=== PATIENT | male | born 1975 | race African-American/Black ===

== ENCOUNTER 2017-03-29 13:55 | Inpatient (IN) | payer MEDICAID, OTHER ==
[~2017-03-29] VITALS: Ht 185.4 cm; Wt 74.6 kg
[~2017-03-29 13:55] MED LIST: BUSP15 PO; QUET400T PO
[2017-03-29 17:20] VITALS: BP 125/77
[2017-03-29] MEDS ORDERED: PNEUMOCOCCAL VACCINE POLYVALENT 0.5 ML VIAL [PPSV23] IM ONE (18:00)
[2017-03-29] MEDS: QUEtiapine FUMARATE 200 MG TABLET PO SCH (20:23)
[2017-03-30 06:49] VITALS: BP 112/75
[2017-03-30] MEDS ORDERED: IBUPROFEN 600 MG TABLET PO PRN (07:45)
[2017-03-30] MEDS ORDERED: ALBUTEROL SULFATE HFA 90 MCG/PUFF 8 GM INHALER IH PRN (07:45)
[2017-03-30] MEDS ORDERED: MAG HYDROX/AL HYDROX/SIMETH ES 30 ML SUSPENSION UDCUP PO PRN (07:45)
[2017-03-30] MEDS ORDERED: BACITRACIN 28.4 GM OINTMENT TP PRN (07:45)
[2017-03-30] MEDS ORDERED: LOPERAMIDE HCL 2 MG CAPSULE PO PRN (07:45)
[2017-03-30] MEDS ORDERED: PETROLATUM,WHITE 71 GM JELLY TP PRN (07:45)
[2017-03-30] MEDS ORDERED: ACETAMINOPHEN 325 MG TABLET PO PRN (07:45)
[2017-03-30] MEDS ORDERED: MAGNESIUM HYDROXIDE SUSPENSION 30 ML UDCUP PO PRN (07:45)
[2017-03-30] MEDS ORDERED: BENZOCAINE/MENTHOL LOZENGE MM PRN (07:45)
[2017-03-30] MEDS ORDERED: ONDANSETRON HCL 4 MG TABLET PO PRN (07:45)
[2017-03-30] MEDS ORDERED: CloNIDine HCL 0.1 MG TABLET PO PRN (07:45)
[2017-03-30 07:46] LABS: BASOPHILS # (AUTO) 0.01 K/uL (0.00-0.20); BASOPHILS % (AUTO) 0.3 % (0.0-2.0); EOSINOPHILS # (AUTO) 0.14 K/uL (0.00-0.70); EOSINOPHILS % (AUTO) 2.65 % (1.0-6.0); HEMATOCRIT 43.8 % (41-53); HEMOGLOBIN 14.2 g/dL (13.5-17.5); MEAN CORPUSCULAR HEMOGLOBIN 27.4 pg (26.0-34.0); MEAN CORPUSCULAR HGB CONC 32.5 G/dL (31.0-37.0); MEAN CORPUSCULAR VOLUME 84 fL (80-100); MONOCYTES # (AUTO) 0.8 K/uL (0.1-1.0); NEUTROPHILS # (AUTO) 3.2 K/uL (1.8-7.7); NEUTROPHILS % (AUTO) 62.1 % (40.0-70.0); PLATELET COUNT (AUTO) 147 K/uL (150-450); RED BLOOD CELL COUNT(AUTO) 5.19 MIL/uL (4.50-5.90); RED CELL DISTRIBUTION WIDTH 14.3 % (11.5-14.5); WHITE BLOOD COUNT (AUTO) 5.2 K/uL (4.5-11.0)
[2017-03-30 08:04] LABS: ANION GAP 9 mmol/L (8-16); CARBON DIOXIDE 26 mmol/L (22-29); CHLORIDE 107 mmol/L (98-107); CREATININE 0.89 mg/dL (0.60-1.30); SODIUM SERUM 142 mmol/L (136-145); UREA NITROGEN, BLOOD 21 mg/dL (7-18)
[2017-03-30 08:05] LABS: ALANINE AMINOTRANSFERASE 29 U/L (12-78); ALBUMIN 3.3 g/dL (3.4-5.0); ASPARTATE AMINOTRANSFERASE 17 U/L (15-37); BILIRUBIN,TOTAL 0.8 mg/dL (0.1-1.0); CALCIUM, TOTAL 8.4 mg/dL (8.8-10.5); CHOL/HDL RATIO 2.6 (4.2-7.3); GLOMERULAR FILTR. RATE CALC > 60 mL/min (>60); TOTAL PROTEIN, SERUM 6.8 g/dL (6.4-8.2)
[2017-03-30 08:34] VITALS: BP 95/60
[2017-03-30] MEDS: LevETIRAcetam 500 MG TABLET PO SCH ×2 (08:44→15:39)
[2017-03-30 16:02] VITALS: BP 112/68
[2017-03-30] MEDS: QUEtiapine FUMARATE 200 MG TABLET PO SCH (20:25)
[2017-03-31 06:38] VITALS: BP 107/69
[2017-03-31 08:03] VITALS: BP 127/62
[2017-03-31] MEDS: LORazepam 2 MG TABLET PO PRN ×2 (08:34→20:46)
[2017-03-31] MEDS: LevETIRAcetam 500 MG TABLET PO SCH ×2 (08:34→16:14)
[2017-03-31 16:00] VITALS: BP 105/64
[2017-03-31] MEDS: QUEtiapine FUMARATE 200 MG TABLET PO SCH (20:46)
[2017-04-01 06:21] VITALS: BP 113/71
[2017-04-01 08:00] VITALS: BP 108/75
[2017-04-01] MEDS: LevETIRAcetam 500 MG TABLET PO SCH ×2 (09:25→17:22)
[2017-04-01] MEDS: LORazepam 2 MG TABLET PO PRN (09:25)
[2017-04-01 16:00] VITALS: BP 108/64
[2017-04-01] MEDS: QUEtiapine FUMARATE 200 MG TABLET PO SCH (20:54)
[2017-04-02 06:15] VITALS: BP 110/70
[2017-04-02 08:27] VITALS: BP 102/65
[2017-04-02] MEDS: LevETIRAcetam 500 MG TABLET PO SCH ×2 (09:07→16:55)
[2017-04-02] MEDS: LORazepam 2 MG TABLET PO PRN ×2 (09:07→16:55)
[2017-04-02] MEDS: BuPROPion HCL XL 150 MG ER TABLET PO SCH (14:27)
[2017-04-02 16:02] VITALS: BP 117/69
[2017-04-02] MEDS: QUEtiapine FUMARATE 200 MG TABLET PO SCH (20:22)
[2017-04-03 06:14] VITALS: BP 100/65
[2017-04-03] MEDS: LevETIRAcetam 500 MG TABLET PO SCH ×2 (08:59→17:10)
[2017-04-03] MEDS: QUEtiapine FUMARATE 200 MG TABLET PO SCH ×2 (08:59→20:35)
[2017-04-03] MEDS: BuPROPion HCL XL 150 MG ER TABLET PO SCH (08:59)
[2017-04-03 13:44] VITALS: BP 101/67
[2017-04-03 16:22] VITALS: BP 123/80
[2017-04-03] MEDS: LORazepam 2 MG TABLET PO PRN (17:58)
[2017-04-04 06:41] VITALS: BP 105/70
[2017-04-04] MEDS: QUEtiapine FUMARATE 200 MG TABLET PO SCH ×2 (08:05→20:22)
[2017-04-04] MEDS: BuPROPion HCL XL 150 MG ER TABLET PO SCH (08:05)
[2017-04-04] MEDS: HALOPERIDOL 5 MG TABLET PO PRN (08:05)
[2017-04-04] MEDS: LORazepam 2 MG TABLET PO PRN (08:05)
[2017-04-04] MEDS: LevETIRAcetam 500 MG TABLET PO SCH ×2 (08:05→15:49)
[2017-04-04 08:10] VITALS: BP 111/73
[2017-04-04 16:09] VITALS: BP 104/62
[2017-04-04] MEDS: ZOLPIDEM TARTRATE 10 MG TABLET PO PRN (20:22)
[2017-04-05 08:21] VITALS: BP 113/79
[2017-04-05] MEDS: LevETIRAcetam 500 MG TABLET PO SCH ×2 (09:02→16:33)
[2017-04-05] MEDS: BuPROPion HCL XL 150 MG ER TABLET PO SCH (09:02)
[2017-04-05] MEDS: QUEtiapine FUMARATE 200 MG TABLET PO SCH ×2 (09:02→20:09)
[2017-04-05 09:19] LABS: CHOL/HDL RATIO 2.9 (4.2-7.3); THYROID STIMULATING HORMONE 1.05 uIU/mL (0.36-3.74)
[2017-04-05] MEDS: LORazepam 2 MG TABLET PO PRN ×2 (11:18→20:09)
[2017-04-05] MEDS: HALOPERIDOL 5 MG TABLET PO PRN (11:18)
[2017-04-05 16:09] VITALS: BP 126/69
[2017-04-06 06:17] VITALS: BP 122/72
[2017-04-06] MEDS: LevETIRAcetam 500 MG TABLET PO SCH ×2 (08:44→16:29)
[2017-04-06] MEDS: QUEtiapine FUMARATE 200 MG TABLET PO SCH ×2 (08:44→20:40)
[2017-04-06] MEDS: BuPROPion HCL XL 150 MG ER TABLET PO SCH (08:44)
[2017-04-06 16:00] VITALS: BP 125/77
[2017-04-06] MEDS: LORazepam 2 MG TABLET PO PRN (16:29)
[2017-04-06] MEDS: HALOPERIDOL 5 MG TABLET PO PRN (16:30)
[2017-04-06] MEDS: ZOLPIDEM TARTRATE 10 MG TABLET PO PRN (20:40)
[2017-04-07 06:12] VITALS: BP 107/68
[2017-04-07 08:30] VITALS: BP 102/61
[2017-04-07] MEDS: QUEtiapine FUMARATE 200 MG TABLET PO SCH ×2 (08:39→20:08)
[2017-04-07] MEDS: LevETIRAcetam 500 MG TABLET PO SCH ×2 (08:39→17:06)
[2017-04-07] MEDS: BuPROPion HCL XL 150 MG ER TABLET PO SCH (08:39)
[2017-04-07] MEDS: LORazepam 2 MG TABLET PO PRN ×2 (12:21→20:08)
[2017-04-07 16:02] VITALS: BP 127/80
[2017-04-08 06:36] VITALS: BP 105/57
[2017-04-08 08:03] VITALS: BP 102/63
[2017-04-08] MEDS: LevETIRAcetam 500 MG TABLET PO SCH (08:27)
[2017-04-08] MEDS: BuPROPion HCL XL 150 MG ER TABLET PO SCH (08:27)
[2017-04-08] MEDS: QUEtiapine FUMARATE 200 MG TABLET PO SCH (08:27)
[2017-04-08] MEDS ORDERED: CHOLECALCIFEROL (VIT D3) 1,000 UNITS TABLET PO SCH (09:00)
[2017-04-08] MEDS ORDERED: LEVE500T53 PO (10:15)
[2017-04-08] MEDS ORDERED: ALBU8HFA IH (10:15)
[2017-04-08] MEDS ORDERED: QUET200T PO (10:15)
[2017-04-08] MEDS ORDERED: BUPR-93 PO (10:15)
[2017-04-08] MEDS ORDERED: VITAD1000 PO (10:15)
== END 2017-04-08 13:25 | disposition home or self-care (01) | DRG 750 ==
LOC: B3A 16:59
PROC: GZHZZZZ Group Psychotherapy (ICD-10-PCS; principal; 2017-03-30)
DX: F25.1 Schizoaffective disorder, depressive type (principal); R45.851 Suicidal ideations; E55.9 Vitamin D deficiency, unspecified; F29 Unspecified psychosis not due to a substance or known physiological condition; I10 Essential (primary) hypertension; F15.90 Other stimulant use, unspecified, uncomplicated; G40.909 Epilepsy, unspecified, not intractable, without status epilepticus; F12.90 Cannabis use, unspecified, uncomplicated; J44.9 Chronic obstructive pulmonary disease, unspecified; K59.00 Constipation, unspecified; F17.200 Nicotine dependence, unspecified, uncomplicated; G47.00 Insomnia, unspecified; Z59.0 Homelessness; Z79.899 Other long term (current) drug therapy; Z95.0 Presence of cardiac pacemaker; Z71.6 Tobacco abuse counseling; Z71.51 Drug abuse counseling and surveillance of drug abuser
CPT/HCPCS: 82306; 84443; 87081